=== PATIENT | male | born 1990 | race Two or more races ===

== ENCOUNTER 2023-12-21 08:22 | Outpatient (CLI) | payer OTHER ==
[2023-12-21 09:15] LABS: HEMATOCRIT 45.3 % (39.0-48.0); HEMOGLOBIN 14.8 g/dL (13-16.00); MEAN CELL VOLUME 82.9 fL (80.0-100.00); MEAN CORPUSCULAR HEMOGLOBIN 27.2 pg (27.00-32.0); MEAN CORPUSCULAR HGB CONC 32.8 g/dl (32.0-36.0); PLATELET COUNT 230 K/uL (150-450); RED BLOOD COUNT 5.46 M/uL (4.00-6.00); RED CELL DISTRIBUTION WIDTH 13.6 % (11.5-14.5)
[2023-12-21 09:30] LABS: URINE APPEARANCE Clear; URINE BILIRRUBIN Negative (NEGATIVE); URINE BLOOD Negative; URINE COLOR Yellow; URINE GLUCOSE Negative (NEGATIVE); URINE LEUKOCYTE Negative; URINE NITRATE Negative; URINE PROTEIN Negative (NEGATIVE)
[2023-12-21 09:36] LABS: URINE BACTERIA 2.5 uL (0.0-1933); URINE EPITHELIAL CELLS 0.6 uL (0.0-38.8); URINE RBC 0.4 uL (0.0-20.8); URINE WBC 0.9 uL (0.0-23.2)
[2023-12-21 10:13] LABS: ALBUMIN 3.9 gm/dL (3.4-5.0); BILIRUBIN TOTAL 0.49 mg/dL (0.3-1.2); CALCIUM 9.6 mg/dL (8.5-10.1); CHOL HDL RATIO 3.4 (0-5.0); CREATININE SERUM 0.98 mg/dL (0.70-1.30); GFR 89.21; GLOBULINA 3.8 G/DL (2.4-3.5); POTASSIUM 4.18 mEq/L (3.5-5.1); TOTAL PROTEIN 7.7 gm/dL (6.4-8.2); TSH 2.4 uIU/mL (0.358-3.74)
[2023-12-23 23:06] LABS: chla t Negative (Negative); neiss Negative (Negative)
== END 2023-12-21 08:23 | disposition home or self-care (01) ==
LOC: LAB 08:22
DX: Z11.4 Encounter for screening for human immunodeficiency virus [HIV] (principal); Z13.29 Encounter for screening for other suspected endocrine disorder; Z13.0 Encounter for screening for diseases of the blood and blood-forming organs and certain disorders involving the immune mechanism; Z13.228 Encounter for screening for other metabolic disorders; Z11.59 Encounter for screening for other viral diseases; Z11.9 Encounter for screening for infectious and parasitic diseases, unspecified; Z11.3 Encounter for screening for infections with a predominantly sexual mode of transmission; Z13.220 Encounter for screening for lipoid disorders; Z13.89 Encounter for screening for other disorder; E55.9 Vitamin D deficiency, unspecified

== ENCOUNTER 2024-01-06 08:53 | Outpatient (CLI) | payer OTHER ==
[2024-01-06 10:31] LABS: HCG QUANTITATIVE < 1 mUI/mL (0-2)
[2024-01-08 05:06] LABS: LEUTEINIZING HORMONE 4.2 mIU/mL (1.7-8.6); PROLACTIN 5.2 ng/mL (3.9-22.7)
== END 2024-01-06 09:01 | disposition home or self-care (01) ==
LOC: LAB 08:53
DX: Z13.29 Encounter for screening for other suspected endocrine disorder (principal); R92.8 Other abnormal and inconclusive findings on diagnostic imaging of breast; N62 Hypertrophy of breast

== ENCOUNTER 2024-05-13 07:48 | Outpatient (CLI) | payer OTHER ==
[2024-05-13 08:37] LABS: PH,URINE 6.5 (5.0-8.0); URINE APPEARANCE Clear; URINE BILIRRUBIN Negative (NEGATIVE); URINE BLOOD Negative; URINE COLOR Yellow; URINE GLUCOSE Negative (NEGATIVE); URINE KETONE Negative (NEGATIVE); URINE LEUKOCYTE Negative; URINE NITRATE Negative; URINE PROTEIN Negative (NEGATIVE); URINE UROBILINOGEN 0.2 E.U./dl
[2024-05-13 08:38] LABS: HEMATOCRIT 44.9 % (39.0-48.0); HEMOGLOBIN 14.8 g/dL (13-16.00); MEAN CELL VOLUME 83.3 fL (80.0-100.00); MEAN CORPUSCULAR HEMOGLOBIN 27.5 pg (27.00-32.0); MEAN CORPUSCULAR HGB CONC 33.1 g/dl (32.0-36.0); PLATELET COUNT 225 K/uL (150-450); RED BLOOD COUNT 5.39 M/uL (4.00-6.00); RED CELL DISTRIBUTION WIDTH 13.8 % (11.5-14.5)
[2024-05-13 08:58] LABS: URINE BACTERIA 3.7 uL (0.0-1933); URINE EPITHELIAL CELLS 0.7 uL (0.0-38.8); URINE RBC 0.4 uL (0.0-20.8)
[2024-05-13 09:08] LABS: INR 1.06; PARTIAL THROMBOPLASTIN TIME 27.3 SECONDS (22.0-34.0); PROTHROMBIN TIME 11.1 SECONDS (9.0-11.5)
[2024-05-13 09:48] LABS: CALCIUM 9.4 mg/dL (8.5-10.1); CREATININE SERUM 0.98 mg/dL (0.70-1.30); GFR 89.21; POTASSIUM 4.8 mEq/L (3.5-5.1)
== END 2024-05-13 07:57 | disposition home or self-care (01) ==
LOC: LAB 07:48
DX: N62 Hypertrophy of breast (principal); D68.9 Coagulation defect, unspecified

== ENCOUNTER 2024-08-18 08:03 | Outpatient (CLI) | payer OTHER ==
[2024-08-18 08:47] LABS: HEMATOCRIT 45.7 % (39.0-48.0); HEMOGLOBIN 15.4 g/dL (13-16.00); MEAN CELL VOLUME 82.7 fL (80.0-100.00); MEAN CORPUSCULAR HGB CONC 33.8 g/dl (32.0-36.0); PLATELET COUNT 258 K/uL (150-450); RED BLOOD COUNT 5.52 M/uL (4.00-6.00); RED CELL DISTRIBUTION WIDTH 12.9 % (11.5-14.5)
[2024-08-18 08:55] LABS: ERYTHROCYTE SEDIMENTATION RATE 24 mm/hr
[2024-08-18 09:11] LABS: URINE APPEARANCE Clear; URINE BILIRRUBIN Negative (NEGATIVE); URINE BLOOD Negative; URINE COLOR Yellow; URINE GLUCOSE Negative (NEGATIVE); URINE KETONE Negative (NEGATIVE); URINE LEUKOCYTE Negative; URINE NITRATE Negative; URINE PROTEIN Negative (NEGATIVE); URINE UROBILINOGEN 0.2 E.U./dl
[2024-08-18 09:19] LABS: URINE EPITHELIAL CELLS 2.4 uL (0.0-38.8); URINE WBC 2.9 uL (0.0-23.2)
[2024-08-18 09:24] LABS: URINE CAST 0.15 uL (0.0-1.40); URINE RBC 1.3 uL (0.0-20.8)
[2024-08-18 09:51] LABS: ALBUMIN 3.9 gm/dL (3.4-5.0); BILIRUBIN TOTAL 0.54 mg/dL (0.3-1.2); CALCIUM 9.4 mg/dL (8.5-10.1); CHOL HDL RATIO 3.3 (0-5.0); CREATININE SERUM 0.93 mg/dL (0.70-1.30); GFR 94.16; GLOBULINA 4.2 G/DL (2.4-3.5); POTASSIUM 4.02 mEq/L (3.5-5.1); TOTAL PROTEIN 8.1 gm/dL (6.4-8.2); TSH 1.77 uIU/mL (0.358-3.74)
[2024-08-18 09:56] LABS: C-REACTIVE PROTEIN 0.48 MG/DL (0.00-0.29)
[2024-08-18 10:32] LABS: VITAMIN D3 25 HYDROXY 40.47 ng/ml (30-120)
[2024-08-20 00:04] LABS: chla t Negative (Negative); neiss Negative (Negative)
== END 2024-08-18 08:04 | disposition home or self-care (01) ==
LOC: LAB 08:03
DX: E03.9 Hypothyroidism, unspecified (principal); E11.9 Type 2 diabetes mellitus without complications; R03.0 Elevated blood-pressure reading, without diagnosis of hypertension; E78.2 Mixed hyperlipidemia; D51.3 Other dietary vitamin B12 deficiency anemia; R30.0 Dysuria; Z13.9 Encounter for screening, unspecified; E55.9 Vitamin D deficiency, unspecified; Z20.2 Contact with and (suspected) exposure to infections with a predominantly sexual mode of transmission

== ENCOUNTER → 2024-12-14 08:04 | Outpatient (CLI) | payer OTHER ==
[2024-12-14 08:48] LABS: HEMATOCRIT 44.6 % (39.0-48.0); HEMOGLOBIN 14.4 g/dL (13-16.00); MEAN CELL VOLUME 84.3 fL (80.0-100.00); MEAN CORPUSCULAR HEMOGLOBIN 27.2 pg (27.00-32.0); MEAN CORPUSCULAR HGB CONC 32.3 g/dl (32.0-36.0); PLATELET COUNT 257 K/uL (150-450); RED BLOOD COUNT 5.29 M/uL (4.00-6.00); RED CELL DISTRIBUTION WIDTH 13.6 % (11.5-14.5)
[2024-12-14 09:00] LABS: PH,URINE 5.5 (5.0-8.0); URINE APPEARANCE Clear; URINE BILIRRUBIN Negative (NEGATIVE); URINE BLOOD Negative; URINE COLOR Yellow; URINE GLUCOSE Negative (NEGATIVE); URINE KETONE Negative (NEGATIVE); URINE LEUKOCYTE Negative; URINE NITRATE Negative; URINE PROTEIN Negative (NEGATIVE); URINE UROBILINOGEN 0.2 E.U./dl
[2024-12-14 09:02] LABS: URINE BACTERIA 1.2 uL (0.0-1933); URINE EPITHELIAL CELLS 0.3 uL (0.0-38.8); URINE RBC 0.5 uL (0.0-20.8); URINE WBC 0.9 uL (0.0-23.2)
[2024-12-14 09:37] LABS: ALBUMIN 3.9 gm/dL (3.4-5.0); BILIRUBIN TOTAL 0.51 mg/dL (0.3-1.2); CALCIUM 9.3 mg/dL (8.5-10.1); CHOL HDL RATIO 3.5 (0-5.0); CREATININE SERUM 0.96 mg/dL (0.70-1.30); GFR 90.77; GLOBULINA 3.7 G/DL (2.4-3.5); POTASSIUM 4.17 mEq/L (3.5-5.1); TOTAL PROTEIN 7.6 gm/dL (6.4-8.2)
[2024-12-14 11:03] LABS: VITAMIN D3 25 HYDROXY 40.59 ng/ml (30-120)
== END | disposition home or self-care (01) ==
LOC: LAB 08:04
DX: R19.7 Diarrhea, unspecified (principal); R06.02 Shortness of breath; Z11.3 Encounter for screening for infections with a predominantly sexual mode of transmission; N39.0 Urinary tract infection, site not specified; E78.00 Pure hypercholesterolemia, unspecified; E03.9 Hypothyroidism, unspecified; E55.9 Vitamin D deficiency, unspecified; Z12.10 Encounter for screening for malignant neoplasm of intestinal tract, unspecified; R74.8 Abnormal levels of other serum enzymes; E53.8 Deficiency of other specified B group vitamins; E66.9 Obesity, unspecified; R73.01 Impaired fasting glucose; R78.4 Finding of other drugs of addictive potential in blood

== ENCOUNTER 2025-03-13 09:58 | Outpatient (CLI) | payer OTHER | END 2025-03-13 10:12 | disposition home or self-care (01) | LOC: RAD 09:58 | DX: M99.01 Segmental and somatic dysfunction of cervical region (principal); M99.02 Segmental and somatic dysfunction of thoracic region; M99.03 Segmental and somatic dysfunction of lumbar region ==

== ENCOUNTER → 2025-03-22 07:49 | Outpatient (CLI) | payer OTHER ==
[2025-03-22 08:33] LABS: URINE APPEARANCE Clear; URINE BILIRRUBIN Negative (NEGATIVE); URINE BLOOD Negative; URINE COLOR Yellow; URINE GLUCOSE Negative (NEGATIVE); URINE KETONE Negative (NEGATIVE); URINE LEUKOCYTE Negative; URINE NITRATE Negative; URINE PROTEIN Negative (NEGATIVE); URINE UROBILINOGEN 0.2 E.U./dl
[2025-03-22 08:35] LABS: BASO % 0.6 % (0.1-1.2); EOS # 0.06 (0.04-0.54); HEMATOCRIT 44.8 % (40.1-51.0); HEMOGLOBIN 14.4 g/dL (13.7-17.5); LYMPH # 2.31 (1.18-3.74); LYMPH % 37.1 % (19.3-53.1); MEAN CORPUSCULAR HEMOGLOBIN 27.2 pg (25.6-32.2); MONO # 0.57 (0.24-0.82); MONO % 9.1 % (4.7-12.5); NEUT # 3.24 (1.56-6.13); PLATELET COUNT 296 K/uL (163-369); RED CELL DISTRIBUTION WIDTH 12.9 % (11.6-14.4)
[2025-03-22 08:35] LABS: URINE BACTERIA 12.2 uL (0.0-1933); URINE RBC 2.3 uL (0.0-20.8); URINE WBC 3.4 uL (0.0-23.2)
[2025-03-22 08:41] LABS: URINE EPITHELIAL CELLS 0.7 uL (0.0-38.8)
[2025-03-22 09:47] LABS: ALBUMIN 4.2 gm/dL (3.4-5.0); BILIRUBIN TOTAL 0.72 mg/dL (0.3-1.2); CALCIUM 9.6 mg/dL (8.5-10.1); CHOL HDL RATIO 3.6 (0-5.0); CREATININE SERUM 1.02 mg/dL (0.70-1.30); FREE TRIODOTIRONINE 3.05 pg/ml (2.18-3.98); GFR 84.64; GLOBULINA 3.9 G/DL (2.4-3.5); POTASSIUM 4.22 mEq/L (3.5-5.1); T4 FREE 1.1 NG/ML (0.76-1.46); TOTAL PROTEIN 8.1 gm/dL (6.4-8.2); TSH 1.91 uIU/mL (0.358-3.74)
[2025-03-22 10:08] LABS: VITAMIN D3 25 HYDROXY 43.56 ng/ml (30-120)
[2025-03-23 05:07] LABS: HSV I IGG TYPE SPECIFIC Non Reactive (Non Reactive)
[2025-03-23 23:07] LABS: chla t Negative (Negative); neiss Negative (Negative)
== END | disposition home or self-care (01) ==
LOC: LAB 07:49
DX: R06.02 Shortness of breath (principal); R19.7 Diarrhea, unspecified; Z11.3 Encounter for screening for infections with a predominantly sexual mode of transmission; N39.0 Urinary tract infection, site not specified; E78.00 Pure hypercholesterolemia, unspecified; E03.9 Hypothyroidism, unspecified; E55.9 Vitamin D deficiency, unspecified; R74.8 Abnormal levels of other serum enzymes; E53.8 Deficiency of other specified B group vitamins; E66.9 Obesity, unspecified; R73.01 Impaired fasting glucose; R78.4 Finding of other drugs of addictive potential in blood

== ENCOUNTER → 2025-08-16 07:37 | Outpatient (CLI) | payer OTHER ==
[2025-08-16 08:44] LABS: BASO % 0.4 % (0.1-1.2); EOS # 0.04 (0.04-0.54); EOS % 0.6 % (0.7-7.0); LYMPH # 2.18 (1.18-3.74); LYMPH % 31.0 % (19.3-53.1); MEAN PLATELET VOLUME 10.80 fl (9.4-12.4); MONO # 0.96 (0.24-0.82); NEUT # 3.79 (1.56-6.13); NEUT % 53.9 % (34.0-71.1); RED CELL DISTRIBUTION WIDTH 13.0 % (11.6-14.4)
[2025-08-16 08:53] LABS: MONO % 13.7 % (4.7-12.5)
[2025-08-16 09:06] LABS: URINE APPEARANCE Clear; URINE BILIRRUBIN Negative (NEGATIVE); URINE BLOOD Negative; URINE COLOR Yellow; URINE GLUCOSE Negative (NEGATIVE); URINE KETONE Negative (NEGATIVE); URINE LEUKOCYTE Negative; URINE NITRATE Negative; URINE PROTEIN Negative (NEGATIVE); URINE UROBILINOGEN 0.2 E.U./dl
[2025-08-16 09:11] LABS: URINE BACTERIA 7.1 uL (0.0-1933); URINE EPITHELIAL CELLS 1.5 uL (0.0-38.8); URINE WBC 24.4 uL (0.0-23.2)
[2025-08-16 09:15] LABS: URINE CAST 0.00 uL (0.0-1.40); URINE RBC 0.5 uL (0.0-20.8)
[2025-08-16 09:41] LABS: ALT/SGPT 44.0 U/L (12-78); AST/SGOT 30.0 U/L (15-37); BILIRUBIN TOTAL 0.63 mg/dL (0.3-1.2); BUN CREA RATIO 15.0 (7.0-25.0); CHOL HDL RATIO 3.1 (0-5.0); CREATININE SERUM 1.08 mg/dL (0.70-1.30); FREE TRIODOTIRONINE 3.24 pg/ml (2.18-3.98); GFR 78.74; GLOBULINA 3.9 G/DL (2.4-3.5); GLUCOSE FASTING 81.0 mg/dL (65-100); HDL 56.0 mg/dl (40-60); LDL 102.0 mg/dl (0-130); OSMOLALITY SERUM 280.0 MOSM/KG (275-295); T4 FREE 1.17 NG/ML (0.76-1.46); TSH 2.42 uIU/mL (0.358-3.74); VLDL 15.0 (0-39)
[2025-08-16 10:40] LABS: VITAMIN D3 25 HYDROXY 118.5 ng/ml (30-120)
[2025-08-17 08:11] LABS: HSV I IGG TYPE SPECIFIC Non Reactive (Non Reactive)
[2025-08-18 06:06] LABS: chla t Negative (Negative); neiss Negative (Negative)
== END | disposition home or self-care (01) ==
LOC: LAB 07:37
DX: N39.0 Urinary tract infection, site not specified (principal); E78.00 Pure hypercholesterolemia, unspecified; E03.9 Hypothyroidism, unspecified; E55.9 Vitamin D deficiency, unspecified; Z12.11 Encounter for screening for malignant neoplasm of colon; R74.8 Abnormal levels of other serum enzymes; E53.8 Deficiency of other specified B group vitamins; E66.9 Obesity, unspecified; R73.01 Impaired fasting glucose; R78.4 Finding of other drugs of addictive potential in blood; Z91.81 History of falling; M81.0 Age-related osteoporosis without current pathological fracture; E21.2 Other hyperparathyroidism; R06.02 Shortness of breath; R19.7 Diarrhea, unspecified